=== PATIENT | female | born 2000 | race Caucasian/White ===

== ENCOUNTER → 2020-05-31 10:00 | Outpatient (BNVA) | payer BC, SELFPAY | PROVIDERS: Family Provider Family Medicine; PCP Family Medicine; Visit Provider Nurse Practitioner | DX: I88.9 Nonspecific lymphadenitis, unspecified (principal); J35.8 Other chronic diseases of tonsils and adenoids; H66.91 Otitis media, unspecified, right ear | CPT/HCPCS: 86308; 87071; 87880 ==

== ENCOUNTER → 2020-11-04 11:25 | Outpatient (BNVA) | payer BC, SELFPAY | PROVIDERS: Family Provider Family Medicine; PCP Family Medicine; Visit Provider Family Medicine | DX: J02.9 Acute pharyngitis, unspecified (principal); R50.9 Fever, unspecified | CPT/HCPCS: 87880 ==